=== PATIENT | male | born 2000 | race Caucasian/White ===

== ENCOUNTER → 2019-03-07 | Outpatient (CLI) | payer BC ==
--- NOTE | 2019-03-07 17:39 | CONS ---
CONSULTATION REASON FOR CONSULTATION: Sleep apnea. This is a 19-year-old male patient, referred to me from [facility] for sleep apnea evaluation. 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 He was looking to move to another job, and during the process he was asked to do a physical, and he screened positive for sleep apnea based on his weight and anatomic features. For that reason, he was referred to me for further investigation. Nevertheless, this patient denies having any excessive fatigue or sleepiness, denies having any snoring, apneas, insomnia. Denies having any choking or gasping for air. No nocturia. No restlessness. He goes to bed around 8 p.m. and wakes up at 4 a.m. in the morning. He is wide awake and alert. No dry mouth. No episodes of falling asleep while driving. He has never been involved in a motor vehicle accident. His weight has been up over the years, and currently he weighs around 323 pounds with a BMI of 43.8. No substance abuse. No alcoholism. No caffeine intake. PAST MEDICAL HISTORY: 1. Obesity. 2. Bronchial asthma, currently inactive and stable. SURGICAL HISTORY: Surgical history includes insertion of a COGENERATION OPERATOR shunt for hydrocephalus. MEDICATIONS: 1. Advair. 2. Claritin. 3. Ibuprofen. SOCIAL HISTORY: Nonsmoker. No history of alcohol drinking. No substance abuse. FAMILY HISTORY: Negative for sleep apnea. Negative for any significant history. Lives with his parents at home. REVIEW OF SYSTEMS: Fourteen-point review of systems was done. Positive findings are all mentioned above in the history of present illness. No sleepwalking. No sleeptalking. No eating disorder. He sleeps in various body positions. He does not watch TV at nighttime. He does not take any naps during the day. He does not wake up throughout the night; and once he is asleep he wakes up only in the morning. No anxiety. No depression. No claustrophobia. No panic attacks. No PTSD. No palpitation. No chest pain. No heartburn. No grinding. No RLS. PHYSICAL EXAMINATION: VITAL SIGNS: BP is 120/79, pulse 80, respirations 16, temperature 98.5, saturation 97% on room air. Height is 6 feet 6 inches, weight 323. Neck size is 19 inches. GENERAL APPEARANCE: Calm, comfortable. HEAD: Atraumatic, normocephalic. NECK: Supple. There is no JVD. No goiter or neck masses. Mallampati class IV. LUNGS: Diminished breath sounds; otherwise clear. HEART: Heart sounds are regular rate and rhythm. Normal S1, S2. No S3, S4. No murmurs. ABDOMEN: Soft, nontender. No organomegaly. EXTREMITIES: No edema. No cyanosis or clubbing. NEUROLOGIC: The patient is alert and oriented x3. There are no focal neurological deficits. PSYCHIATRY: Negative for anxiety or depression. IMPRESSION: 1. class c truck driver, currently being investigated for obstructive sleep apnea. 2. Obesity; body mass index 43.8. 3. Chronic bronchial asthma. 4. History of hydrocephalus, post COGENERATION OPERATOR shunt. PLAN: Overall suspicion for symptomatic obstructive sleep apnea is low. The patient is completely asymptomatic. Nevertheless, based on his weight, anatomic features and his occupation, it is reasonable to proceed with a home sleep study to screen this patient for any form of sleep-breathing disorder and decide if any treatment is needed accordingly. If this study is negative, the patient will be cleared and appropriate paperwork will be filled out regarding his DOT certification. MMODL / IJN: [id number] /
== END | disposition home or self-care (01) ==
LOC: SLEEP 15:53
PROVIDERS: ATTEND Internal Medicine Critical Care Medicine
DX: G47.33 Obstructive sleep apnea (adult) (pediatric) (principal); J44.9 Chronic obstructive pulmonary disease, unspecified; E66.9 Obesity, unspecified; Z68.41 Body mass index [BMI] 40.0-44.9, adult; Z98.2 Presence of cerebrospinal fluid drainage device; Z86.69 Personal history of other diseases of the nervous system and sense organs; Z79.891 Long term (current) use of opiate analgesic; Z79.899 Other long term (current) drug therapy
CPT/HCPCS: 99211